=== PATIENT | female | born 1995 | race Caucasian/White ===

== ENCOUNTER 2017-06-16 14:14 | Emergency (ER) | payer SELFPAY ==
[~2017-06-16] VITALS: Ht 170.2 cm; Wt 57.6 kg
[2017-06-16 14:23] VITALS: Ht 170.2 cm; Wt 57.6 kg
== END 2017-06-16 17:16 | disposition left against medical advice (07) ==
LOC: E/R 14:14
DX: Z53.21 Procedure and treatment not carried out due to patient leaving prior to being seen by health care provider (principal)